=== PATIENT | female | born 1955 | race Caucasian/White ===

== ENCOUNTER 2024-02-07 14:52 | Emergency (ER) | payer BC, MEDICARE, OTHER ==
[2024-02-07] MEDS ORDERED: Sodium Chloride 0.9% 1,000 ML ONE (15:33)
[2024-02-07] MEDS ORDERED: Morphine 4 MG/ML VIAL ONE (15:33)
[2024-02-07] MEDS ORDERED: Ondansetron PF 4 MG/2 ML Vial ONE (15:33)
[2024-02-07 15:50] LABS: #Basophils 0.1 thou/uL (0.0-0.2); #Eosinphils 0.3 thou/uL (0.0-0.7); #Lymphocytes 1.8 thou/uL (1.20-3.40); #Monocytes 0.7 thou/uL (0.11-0.59); #Neutrophils 3.4 thou/uL (1.40-6.50); %Basophils 1.2 % (0.0-1.0); %Eosinophils 5.1 % (0.0-10.0); %Monocytes 10.7 % (0.0-10.0); %Neutrophils 54.1 % (42.0-75.0); Anisocytosis SLIGHT = 6-15 cells (100X) (0-5/hpf); Hematocrit 46.3 % (36.0-47.0); Hemoglobin 13.5 g/dL (12.0-16.0); Hypochromia SLIGHT = 6-15 cells (100X) (0-5/hpf); MDiff Complete? YES; Macrocytosis SLIGHT = 6-15 cells (100X) (0-5/hpf); Mean Corpuscular HGB CONC 29.2 g/dL (32.0-36.0); Mean Corpuscular Hemoglobin 29.4 pg (27.0-31.0); Mean Corpuscular Volume 100.5 fl (78.0-98.0); Mean Platelet Volume 8.8 fL (7.4-10.4); Platelet Adequacy Comment Appears Adequate; Platelet Count 167 10x3/uL (130-400); RBC Distribution Width 12.6 % (11.5-14.5); Red Blood Cell (RBC) Count 4.61 mill/uL (4.20-5.40); White Blood Cell (WBC) Count 6.2 10x3/uL (4.8-10.8)
[2024-02-07 15:53] LABS: ALT (SGPT) 11 U/L (8-55); AST (SGOT) 16 U/L (5-34); Albumin 3.8 g/dL (3.4-4.8); Alkaline Phosphatase 45 U/L (40-110); Anion Gap 14 mmol/L (10-20); BUN (Urea Nitrogen) 17 mg/dL (9.8-20.1); Calc. Creatinine Clearance 0 mL/min (70-130); Carbon Dioxide 26 mmol/L (23-31); Chloride 106 mmol/L (98-107); Estimated GFR 61; Globulin 2.8 g/dL (2.4-3.5); Glucose 91 mg/dL (80-115); Potassium 4.4 mmol/L (3.5-5.1); Protein, Total 6.6 g/dL (5.8-8.1); Sodium 142 mmol/L (136-145)
[2024-02-07 16:30] LABS: Bilirubin Negative (Negative); Blood, Urine Large (Negative); Glucose, Urine (Dipstick) Negative (Negative); Ketone, Urine Negative (Negative); Leukocyte Negative (Negative); Nitrite Negative (Negative); Protein, Urine (Dipstick) Negative (Neg-Trace); Specific Gravity, Urine 1.015 (1.005-1.030); Urobilinogen 0.2 mg/dL (Less than 2)
[2024-02-07 16:31] LABS: Bacteria/HPF 1+ HPF (None Seen); CAUTI Indications for Culture Dysuria,urgency,freq; Clarity Hazy (Clear); RBC/HPF 21-50 HPF (0-3); WBC/HPF 0-3 HPF (0-3)
[2024-02-07 16:32] LABS: Urine Culture Reflex No No
[2024-02-07] MEDS ORDERED: Sodium Chloride 0.9% 100 ML ONE (16:34)
[2024-02-07] MEDS ORDERED: cefTRIAXone (ROCEPHIN) 1 GM VIAL ONE (16:34)
== END 2024-02-07 17:15 | disposition home or self-care (01) ==
LOC: MADERS 14:52
DX: N20.2 Calculus of kidney with calculus of ureter (principal); R82.71 Bacteriuria; E03.9 Hypothyroidism, unspecified; E78.5 Hyperlipidemia, unspecified; I10 Essential (primary) hypertension; Z79.899 Other long term (current) drug therapy
CPT/HCPCS: 74176; 80053; 81001; 83605; 85025; 94760; 96365; 96375; J0696; J2270; J2405; J3490; J7050